=== PATIENT | male | born 1960 | race Caucasian/White ===

== ENCOUNTER → 2024-09-26 08:12 | Outpatient (REF) | payer SELFPAY | LOC: HWRAD 08:12 | PROVIDERS: ATTENDING PHYSICIAN Internal Medicine | DX: E78.01 Familial hypercholesterolemia (principal) | CPT/HCPCS: 75571 ==

== ENCOUNTER 2024-10-24 06:16 | Day surgery (SDC) | payer OTHER, SELFPAY | END 2024-10-24 11:05 | disposition home or self-care (01) | LOC: GI 06:16 | PROVIDERS: ATTENDING PHYSICIAN Internal Medicine; FAMILY PHYSICIAN Internal Medicine | DX: Z12.11 Encounter for screening for malignant neoplasm of colon (principal); K57.30 Diverticulosis of large intestine without perforation or abscess without bleeding; D12.2 Benign neoplasm of ascending colon; Z86.0100 Personal history of colon polyps, unspecified | CPT/HCPCS: 45385; 88305 ==